=== PATIENT | male | born 1940 ===

== ENCOUNTER 2018-08-02 07:54 | Outpatient (CLI) | payer OTHER ==
[~2018-08-02] VITALS: Ht 182.9 cm; Wt 95.3 kg
== END 2018-08-02 08:10 | disposition home or self-care (01) ==
LOC: OFIC 805 07:54
DX: R49.0 Dysphonia (principal); H61.23 Impacted cerumen, bilateral; H90.41 Sensorineural hearing loss, unilateral, right ear, with unrestricted hearing on the contralateral side; C32.9 Malignant neoplasm of larynx, unspecified

== ENCOUNTER 2018-08-09 08:25 | Outpatient (CLI) | payer OTHER ==
[~2018-08-09] VITALS: Ht 182.9 cm; Wt 95.3 kg
== END 2018-08-09 08:45 | disposition home or self-care (01) ==
LOC: OFIC 805 08:25
DX: R49.0 Dysphonia (principal); H61.23 Impacted cerumen, bilateral; H90.A21 Sensorineural hearing loss, unilateral, right ear, with restricted hearing on the contralateral side; C32.9 Malignant neoplasm of larynx, unspecified